=== PATIENT | male | born 1930 | race Caucasian/White ===

== ENCOUNTER 2017-05-22 09:48 | Day surgery (SDC) | payer OTHER ==
[~2017-05-22] VITALS: Ht 170.2 cm; Wt 80.9 kg
[~2017-05-22 09:48] MED LIST: AMLACTIN140 GM TP; AMLODIPINE BESYL5 MG PO; ASPIRIN81 M2 PO; CYANOCOBAL1000 MCG/2 IM; METOPROLOL SUCC50 MG PO
[2017-05-22 15:45] VITALS: BP 134/78
[2017-05-22 19:48] VITALS: BP 178/76
[2017-05-23 00:21] VITALS: BP 145/67
[2017-05-23 04:26] VITALS: BP 133/60
[2017-05-23 05:35] LABS: EOSINOPHIL (%) 3.4 % (0-5); EOSINOPHIL COUNT 0.2 K/uL (0-0.3); HEMATOCRIT 41.1 % (38.0-50.0); IMMATURE GRANULOCYTE (%) 0.3 % (0.0-0.7); INSTRUMENT ABS NEUTROPHIL CT 3.9 K/uL; LYMPHOCYTE COUNT 1.4 K/uL (1.0-2.8); MCH 29.1 PG (29.0-34.0); MCHC 33.3 G/DL (30.0-36.0); MCV 87.4 FL (86-99); MEAN PLAT.VOLUME 11.5 uM^3 (9.0-12.4); MONOCYTE (%) 10.6 % (3-12); MONOCYTE COUNT 0.7 K/uL (0-0.8); NEUTROPHIL (%) 62.9 % (45-76); NEUTROPHIL COUNT 3.9 K/uL (1.8-6.4); PLATELET COUNT 203 K/uL (156-360); RBC DIS.WIDTH-CV 13.7 % (11.8-14.6); RBC DIS.WIDTH-SD 44.1 % (39-53); WHITE BLOOD COUNT 6.2 K/uL (4.1-10.2)
[2017-05-23 06:00] LABS: ANION GAP 8 MEQ/L (2-14); CHLORIDE 107 MEQ/L (99-109); GFR ESTIMATE (CALCULATED) > 59 mL/min/; GLUCOSE 95 mg/dL (70-99); POTASSIUM 3.6 MEQ/L (3.7-5.4); SAMPLE HEMOLYSIS CHECK 0; SAMPLE ICTERIC CHECK 0; SAMPLE LIPEMIA CHECK 0; SODIUM 140 MEQ/L (136-147); UREA NITROGEN (BUN) 13 mg/dL (9-23)
[2017-05-23 06:53] VITALS: BP 140/68
[2017-05-23] MEDS ORDERED: ATORVASTATIN CA40 MG PO (11:05)
[2017-05-23] MEDS ORDERED: CLOPIDOGREL75 MG PO (11:05)
== END 2017-05-23 13:25 | disposition home or self-care (01) ==
LOC: CATH 09:48 → 2SOUTH 13:10 → 4EAST 13:10 → 2SOUTH 13:10 → ENRESERV 13:22 → 4EAST 15:44
PROVIDERS: Internal Medicine Cardiovascular Disease
DX: I25.10 Atherosclerotic heart disease of native coronary artery without angina pectoris (principal); I10 Essential (primary) hypertension; R94.31 Abnormal electrocardiogram [ECG] [EKG]; Z79.82 Long term (current) use of aspirin
CPT/HCPCS: 80048; 85025; 93005; C1725; C1769; C1874; C1887; G0378; J0153; J1644; J2250; J3010; J3246; J7030

== ENCOUNTER 2017-07-23 03:44 | Emergency (ER) | payer OTHER ==
[~2017-07-23] VITALS: Ht 170.2 cm; Wt 85.1 kg
[~2017-07-23 03:44] MED LIST changes: +ATORVASTATIN CA40 MG PO; +CLOPIDOGREL75 MG PO
[2017-07-23 04:27] LABS: BASOPHIL (%) 0.5 % (0-1); EOSINOPHIL (%) 2.3 % (0-5); EOSINOPHIL COUNT 0.1 K/uL (0-0.3); HEMATOCRIT 46.8 % (38.0-50.0); HEMOGLOBIN 15.9 G/DL (12.5-16.6); IMMATURE GRANULOCYTE (%) 0.3 % (0.0-0.7); LYMPHOCYTE (%) 26.2 % (15-42); LYMPHOCYTE COUNT 1.6 K/uL (1.0-2.8); MCH 29.8 PG (29.0-34.0); MCV 87.6 FL (86-99); MONOCYTE (%) 9.6 % (3-12); MONOCYTE COUNT 0.6 K/uL (0-0.8); NEUTROPHIL (%) 61.1 % (45-76); NEUTROPHIL COUNT 3.8 K/uL (1.8-6.4); PLATELET COUNT 219 K/uL (156-360); RBC DIS.WIDTH-CV 13.7 % (11.8-14.6); RBC DIS.WIDTH-SD 43.9 % (39-53); RED BLOOD COUNT 5.34 M/uL (4.00-5.50); WHITE BLOOD COUNT 6.1 K/uL (4.1-10.2)
[2017-07-23 04:38] LABS: ALBUMIN 4.2 g/dL (3.2-4.8); CHLORIDE 108 mEq/L (99-109); POTASSIUM 4.2 mEq/L (3.7-5.4); SODIUM 141 mEq/L (136-147)
[2017-07-23 04:40] LABS: GLUCOSE 116 mg/dL (70-99)
[2017-07-23 04:41] LABS: TOTAL PROTEIN 7.2 g/dL (6.4-8.3)
[2017-07-23 04:42] LABS: TOTAL BILIRUBIN 0.8 mg/dL (0.0-1.0)
[2017-07-23 04:44] LABS: ALKALINE PHOSPHATASE 101 IU/L (3-129); CREATININE 1.2 mg/dL (0.6-1.3); GFR ESTIMATE (CALCULATED) > 59 mL/min/ (58.99-99999)
[2017-07-23 04:45] LABS: UREA NITROGEN (BUN) 15 mg/dL (9-23)
[2017-07-23 04:46] LABS: AST (GOT) 27 IU/L (2-34)
[2017-07-23 04:47] LABS: ALT (GPT) 42 IU/L (3-49); LIPASE 14 U/L (1.0-51.0)
[2017-07-23 04:49] LABS: TROP-I INTERPRETATION NEGATIVE; TROPONIN-I 0.04 ng/mL (0.0-0.30)
[2017-07-23 05:24] LABS: APPEARANCE CLEAR ((CLEAR)); BILIRUBIN NEGATIVE; BLOOD SMALL; COLOR YELLOW ((YELLOW)); GLUCOSE (STRIP) NEGATIVE; KETONES NEGATIVE; LEUKOCYTES NEGATIVE; NITRITE NEGATIVE; PROTEIN (STRIP) NEGATIVE; SPECIFIC GRAVITY 1.016 (1.000-1.030); UROBILINOGEN 0.2 MG/DL (0.2-1.0)
[2017-07-23 05:28] LABS: BACTERIA NONE SEEN /HPF; EPITHELIAL CELLS RARE /HPF; MUCUS 1+ /LPF; UCUL ADDED? NO; WHITE BLOOD CELLS 0-5 /HPF (0-5)
[2017-07-23] MEDS ORDERED: NORVASC5 MG PO (06:10)
[2017-07-23 06:52] VITALS: BP 182/81
== END 2017-07-23 07:19 | disposition home or self-care (01) ==
LOC: EME → EDBD 03:44 → EME 03:44
PROVIDERS: Emergency Medicine
DX: K59.00 Constipation, unspecified (principal); R19.07 Generalized intra-abdominal and pelvic swelling, mass and lump; K21.9 Gastro-esophageal reflux disease without esophagitis; I10 Essential (primary) hypertension; N40.0 Benign prostatic hyperplasia without lower urinary tract symptoms; I25.10 Atherosclerotic heart disease of native coronary artery without angina pectoris; Z79.82 Long term (current) use of aspirin; Z95.5 Presence of coronary angioplasty implant and graft; Z88.8 Allergy status to other drugs, medicaments and biological substances; Z88.0 Allergy status to penicillin
CPT/HCPCS: 74177; 80053; 81003; 83690; 84484; 85025; 93005; 99281; 99285; J7040